=== PATIENT | male | born 1965 | race Caucasian/White ===

== ENCOUNTER 2020-03-18 08:49 | Day surgery (SDC) | payer BC, OTHER ==
[~2020-03-18] VITALS: Ht 182.9 cm; Wt 98.8 kg
--- NOTE | ~2020-03-18 | O ---
[facility] [place] [address] OPERATIVE REPORT Name: FLORENTINO KELLEY Room #: 150-6 [facility]..#: [id number] Admission: 03/18/20 Attend Phys: Aayush Martinez MD Discharge: Date of : 65 Report #: [id number] THIS REPORT FOR: cc: LUIS EDUARDO BILLY Glenn M MD ~ CC: LUIS EDUARDO Martinez DATE OF SERVICE: 03/18/2020 PREPROCEDURAL DIAGNOSES: Degenerative disk disease, spinal stenosis, foraminal stenosis, C6-C7 radiculopathy, osteodiscal complex C6-C7 and neck pain. POSTPROCEDURAL DIAGNOSES: Degenerative disk disease, spinal stenosis, foraminal stenosis, C6-C7 radiculopathy, osteodiscal complex C6-C7 and neck pain. PROCEDURES: C6-C7 cervical total disk replacement (code 55509) and fluoroscopy (code 72756-76-14). SURGEON: Aayush Martinez MD ENROLLMENT CONSULTANT SURGEON: ANA Smith ANESTHESIA: General via endotracheal tube. INDICATIONS: The patient has had intractable neck and arm pain in a C7 radicular pattern. He has proved refractory to multimodality conservative managements, requesting that we proceed with operative intervention. He understands the risks of surgery to be , DVT, pulmonary embolism, quadriplegia, loss of the use of the arms, the legs, numbness, tingling, weakness, loss of ability to ambulate, loss of bowel and bladder function, loss of sexual function and the possibility of bleeding requiring transfusion, transfusion attendant, risks of AIDS and hepatitis infection, instability, the need for revision, dural leak, spinal headache, and again he requested we proceed. He also understood the small chance of infection. DESCRIPTION OF PROCEDURE: The patient was brought to the operating room and administered general anesthesia via endotracheal tube. Lower extremities were treated with IZABELLA hose and intermittent compression stockings. He was positioned on the [place] table, a radiolucent frame in the supine position. A bump was placed between the scapula to afford scapular retraction and neck neutral position. Arms were carefully tucked and padded at the side. Hips and knees were flexed over 2 pillows. The heels were on gel. In this neck in neutral position, the anterior aspect of the neck was defatted with alcohol. It was visualized under fluoroscopy and the transverse skin fold on the left most [address] [address] OPERATIVE REPORT Name: FLORENTINO KELLEY Room #: 150-6 [facility].#: [id number] Admission: 03/18/20 Attend Phys: Aayush Martinez MD Discharge: Date of : 65 Report #: [id number] approximating the C6-C7 level was chosen. We sterilely prepped and draped after obtaining the localizing x-ray and then infiltrated the skin with 0.5% Marcaine, 1:200,000 epinephrine. Sharp dissection was then continued down through the skin and the subcutaneous tissues to the level of the platysma. Flaps were undermined going slightly more distal as the incision was centered up near C5-C6. We then inserted our self-retaining retractors. We elevated the platysma between two forceps and split it in combination in line with its fibers and at the anterior border of the sternocleidomastoid with Metzenbaum scissors. With a Metzenbaum scissors splitting the platysma, we then found the anterior edge of the sternocleidomastoid and dissected it bluntly from the middle cervical fascia and the oblique strap muscle. We then using handheld Cloward's and a Kitner dissector palpated the carotid and felt for the plane just medial to the carotid and an anteromedial approach to the spine was fashioned using Kitner blunt dissection. Once to the anterior aspect of the spine, we swept the fibrofatty tissue of the anterior aspect and the first disk space encountered. We placed a spinal needle with a band to allow to stop, so that it would not penetrate more than that desired depth. We obtained an additional fluoroscopy that required exposure and surgeon interpretation and determined that we were at the C6-C7 level. With the C6-C7 level found, we then removed the anterior osteophytes and did a very small dissection just peridiscally. We then elevated the longus colli slightly and inserted the blunt blades. The blunt blades were never retracted much further than the width of the vertebral body. We inserted the distraction pins and applied light distraction. We used a Leksell rongeur to remove the anterior osteophytes at the C6-C7 level. We then used cautery to continue the anterior annulectomy and then a pituitary to remove disk material that was grossly degenerative and very dried out. The disk material was removed when there was little delivery with the pituitary. We used the 3 mm curette to elevate both disk and cartilaginous endplate and it was removed back to the posterior longitudinal ligament. Fragments were removed with a pituitary. We then elevated the posterior annulus from the spondylitic ridge of C7 and it was resected with a 2 mm Kerrison. We then elevated the annulus from the inferior aspect of C6 and removed the ____ from the posterior aspect of C6. We then performed a medial half uncovertebral joint resection bilaterally affecting a bilateral posterior neural foraminal decompression bilaterally until the nerve root probe completely free. With a nerve root probing completely free, we were then able to deem the decompression complete. We had completely taken down the posterior longitudinal ligament. We could see naked dura. There was no further encumbrance whatsoever. We then inserted the sizer in the disk and decided a medium long was the appropriate size. With the size chosen under fluoroscopy, the template was removed and the sizer was inserted in the disk space tamping back to the posterior margin of the disk under continuous fluoroscopic guidance. This required considerable fluoroscopic exposure and the need for interpretation to avoid inadvertent to deep penetration. We then removed the trial having shown to be of appropriate size and centered and we were then able to place the thin cutters followed by the prosthesis. The prosthesis was seated to within a millimeter of the posterior margin of the vertebrae and it was well [address] [address] OPERATIVE REPORT Name: FLORENTINO KELLEY Room #: 150-6 [facility]#: [id number] Admission: 03/18/20 Attend Phys: Aayush Martinez MD Discharge: Date of : 65 Report #: [id number] centered on the midline. It appeared to be in excellent position total disk replacement at the C6-C7 level and again AP and lateral was checked, total fluoroscopy time was just less than 20 minutes. The patient was then inspected for hemostasis. Meticulous hemostasis was obtained. We copiously irrigated with a liter of antibiotic-containing solution. We again inspected for hemostasis and again it was superb. There was no evidence of bleeding whatsoever was dry. The wound was dry. We reapproximated the platysma with 3-0 Vicryl, the subcutaneous with 3-0 Vicryl, skin with a running subcuticular 3-0 Vicryl. Dressed with benzoin, Steri-Strips, Xeroform, sterile dressings sponges and a bioclusive. The patient was then placed in a soft collar, having tolerated the procedure well. He was physiologically stable throughout. There were no technical misadventures. His final fluoroscopy views look superb with respect to instrumentation placement. By: [id number] Aayush Martinez MD /nt
[~2020-03-18 08:49] MED LIST: ALAVERT D-12 A1 EACH PO; BENADRYL25 MG PO; BISOPROLOL-HCT1 EACH PO; CLOPIDOGREL75 MG PO; COQ-10100 MG PO; DULOXETINE HCL30 MG PO; FAMOTIDINE 20 M20 MG PO; MIRALAX119 GM PO; MS CONTIN 30 MG30 M1 PO; NORCO 10-325 T1 EACH PO; PANTOPRAZOLE SO20 MG PO; PRAVASTATIN SOD20 MG PO; ROXICODONE15 MG PO; ZOFRAN4 MG PO
[2020-03-18 09:34] VITALS: BP 148/91
[2020-03-18 15:41] VITALS: BP 148/91
== END 2020-03-18 15:45 | disposition home or self-care (01) ==
LOC: OR 08:49 → TBA 08:50 → OR 11:18
DX: M50.123 Cervical disc disorder at C6-C7 level with radiculopathy (principal); M48.02 Spinal stenosis, cervical region; M25.78 Osteophyte, vertebrae; I10 Essential (primary) hypertension; E78.00 Pure hypercholesterolemia, unspecified; I25.2 Old myocardial infarction; G43.909 Migraine, unspecified, not intractable, without status migrainosus; J45.909 Unspecified asthma, uncomplicated; K21.9 Gastro-esophageal reflux disease without esophagitis; Z87.891 Personal history of nicotine dependence; Z98.890 Other specified postprocedural states; Z79.899 Other long term (current) drug therapy; Z88.8 Allergy status to other drugs, medicaments and biological substances
CPT/HCPCS: 50010; 50101; 50402; 51725; 56526; 56528; 58232; 62110; 62900; 70005

== ENCOUNTER → 2020-04-02 | Outpatient (CLI) | payer BC, OTHER | LOC: RAD 06:41 | DX: R29.890 Loss of height (principal); Z96.89 Presence of other specified functional implants ==

== ENCOUNTER → 2020-05-16 | Outpatient (CLI) | payer BC, OTHER | LOC: RAD 07:31 | DX: Z98.890 Other specified postprocedural states (principal) ==